=== PATIENT | female | born 1970 | race Caucasian/White ===

== ENCOUNTER 2018-10-17 06:28 | Day surgery (SDC) | payer BC ==
[2018-10-17] MEDS ORDERED: DIPRIVAN 200 MG/20 ML IV ONE (06:29)
[2018-10-17] MEDS ORDERED: Lactated Ringers 1,000 ML IV SCH (07:00)
[2018-10-17] MEDS ORDERED: Lactated Ringers 1,000 ML IV ONE (08:25)
[2018-10-17 09:11] VITALS: O2SAT 99
[2018-10-17 09:12] VITALS: BP 125/86; PULSE 72
--- NOTE | 2018-10-17 12:45 | OP ---
SURGERY DATE/TIME: 10/17/2018 0757 PREOPERATIVE DIAGNOSIS: Reflux, heartburn despite proton pump inhibitor and H2 blockers. POSTOPERATIVE DIAGNOSES: 1) Moderate to severe gastritis. 2) Hiatal hernia. PROCEDURE: Esophagogastroduodenoscopy with cold forceps biopsy. SURGEON: Dr. Pierce. ANESTHESIA: Medications were given by the anesthesia department. BRIEF HISTORY: The patient is a 48 year old white female presenting now for endoscopic evaluation. She reports she has been having a lot of trouble with epigastric pain radiating up into her chest. She also has reflux of food stuffs into the back of the throat at times. She has been taking Prilosec for many years. She recently changed to Protonix and added Zantac recently as well. The patient previously had her gallbladder removed. She is felt at this point to need endoscopic evaluation. She was appraised of the risks of the procedure including the risk of perforation, phlebitis, untoward reaction to medication, bleeding and missed lesions. The patient verbalized her understanding and desired to have the procedure performed. DESCRIPTION OF PROCEDURE: The patient was given the medications by the anesthesia department. She had continuous pulse oximetry, ECG monitoring, intermittent blood pressure monitoring and tidal CO2 monitoring during the examination. She was placed in the left lateral decubitus position. A bite block was placed and the flexible Olympus gastroscope was used to intubate the oropharynx. A view of the larynx obtained and was normal. The scope was easily passed in the esophagus which is normal to the gastroesophageal junction where there is appearance of hiatal hernia. The scope was introduced into the stomach where normal gastric rugal folds were seen and these distended nicely with insufflation of air. The scope was passed along the greater curvature of the stomach to the pylorus. The whole area of the stomach appeared to be with moderate to severe patchy erythema but no erosions or ulcerations were noted. The scope was passed through the pylorus to the duodenum. The duodenum inspected and found to be essentially normal. The scope is withdrawn towards the stomach. Again, a retroflex view was obtained of the lesser curvature, fundus and cardia regions of the stomach and there affirmed the presence of hiatal hernia. The scope was then redirected towards the gastric antrum and biopsies were obtained to rule out the presence of Helicobacter pylori-type organisms. The scope was then removed from the patient who tolerated the procedure well and was sent back to outpatient recovery in good condition.
== END 2018-10-17 09:15 | disposition home or self-care (01) ==
LOC: SDC 06:28
PROVIDERS: ATTEND Family Medicine
DX: K21.9 Gastro-esophageal reflux disease without esophagitis (principal); K29.70 Gastritis, unspecified, without bleeding; K44.9 Diaphragmatic hernia without obstruction or gangrene
CPT/HCPCS: J2704

== ENCOUNTER 2022-03-22 10:09 | Day surgery (SDC) | payer BC ==
--- NOTE | 2022-03-22 09:41 | HP ---
DATE OF SURGERY: 03/22/2022 HISTORY OF PRESENT ILLNESS: The patient is a 52-year-old female with history of hypertension, reflux, migraines, depression and heartburn. She had a cholecystectomy, tubal, upper endoscopy, uterine ablation, prior colonoscopy in the past. Family history father, sister and niece had colon cancer. She is in need for screening colonoscopy. Last colonoscopy four or five years ago she had some polyps. She is in need of follow up screening colonoscopy. PAST MEDICAL HISTORY: Asthma, hypertension, reflux, migraines, anxiety, depression and heartburn. PAST SURGICAL HISTORY: Cholecystectomy, tubal, upper endoscopy, uterine ablation, prior colonoscopy in the past. MEDICATIONS: Magnesium, methimazole, potassium chloride, spironolactone, topiramate, sumatriptan, sucralfate, pantoprazole, vitamin D3, amlodipine, sertraline. ALLERGIES: SULFA. REGLAN. FAMILY HISTORY: Father, sister and niece had colon cancer. SOCIAL HISTORY: No smoking. REVIEW OF SYSTEMS: Fourteen systems reviewed. No chest pain or palpitations. Other systems negative or noncontributory as above and per preadmission questionnaire. PHYSICAL EXAMINATION: GENERAL: No acute distress. HEENT: Sclerae nonicteric. NECK: No JVD. CHEST: Equal excursion, nonlabored breathing. CVS: Regular rate and rhythm. ABDOMEN: Soft. No peritoneal signs. EXTREMITIES: No significant edema. NEURO: Alert, oriented, moving extremities symmetrically. RECTAL: Deferred timed to endoscopy exam. PSYCH: Appropriate mood and affect. IMPRESSION: Family history of colon cancer, personal history of polyps. She is in need of follow up screening colonoscopy. I feel she is a candidate. General risk of bleeding or infection, risk of bowel injury or perforation possibly requiring further procedure, risk of missed or nondiagnosis or incomplete exam possibly requiring barium enema, other studies or procedures, general risk of anesthesia or sedation, risk of bowel prep but not limited to, consent obtained. Will proceed with outpatient follow up screening colonoscopy.
[~2022-03-22 10:09] MED LIST: Lactated Ringers 1,000 ML IV SCH
[2022-03-22] MEDS ORDERED: Lactated Ringers 1,000 ML IV ONE (10:21)
[2022-03-22] MEDS ORDERED: Xylocaine-Mpf 2% 5 Ml Vial ONE (12:44)
[2022-03-22] MEDS ORDERED: DIPRIVAN 200 MG/20 ML IV ONE ×2 (12:44→13:02)
[2022-03-22 14:00] VITALS: BP 129/86; PULSE 76; O2SAT 99
--- NOTE | 2022-03-23 09:48 | OP ---
SURGERY DATE/TIME: 03/22/2022 1254 PREOPERATIVE DIAGNOSES: 1) History of polyps. 2) Family history of colon cancer, need for follow up screening colonoscopy. POSTOPERATIVE DIAGNOSES: 1) Small polyps sigmoid colon and descending colon. 2) Diverticulosis. 3) Fair bowel prep. 4) ASA Class II. 5) Withdrawal time approximately 11 minutes. PROCEDURES: 1) Colonoscopy to cecum. 2) Hot biopsy polypectomy small early polyp versus hyperplastic lesion descending colon. 3) Hot biopsy polypectomy small sigmoid colon polyp removed with hot biopsy forceps. SURGEON: Dr. Justin Mcdonald. ANESTHESIA: MAC. ESTIMATED BLOOD LOSS: Minimal. INDICATIONS: As noted above. Risks and benefits explained in detail but not limited to and consent obtained. DESCRIPTION OF PROCEDURE AND FINDINGS: The patient is taken to the endoscopy room. MAC anesthesia induced. After official time out and no disagreement with planned procedure, digital rectal exam did not reveal any rectal masses. Video colonoscope inserted and passed up through the tortuous sigmoid, descending, transverse and ascending colon around to the cecum. Appendiceal orifice and valve well visualized and photo documented. Prep overall was fair with a little bit of liquidy semisolid stool throughout the colon. It took some additional time to suction irrigate out and cleaned out as well as possible. The scope is slowly and carefully withdrawn. No signs of any large polyps, masses or obstructing lesions. Small polyp versus hyperplastic lesion descending colon removed with hot biopsy forceps with brief bursts of cautery. Good hemostasis noted. The scope was carefully withdrawn. Small polyp versus hyperplastic lesion in descending colon removed with hot biopsy forceps. Small polyp in the sigmoid colon removed with hot biopsy polypectomy. Good hemostasis was noted. She did have some mild diverticulosis in the left colon. No signs of large polyps, masses or obstructing lesions. The scope is withdrawn. The patient tolerated the procedure well. Withdrawal time was around 11 minutes. I will see if she has any family to discuss the findings with out in the waiting area.
== END 2022-03-22 14:06 | disposition home or self-care (01) ==
LOC: SDC 10:09
PROVIDERS: ATTEND Surgery
DX: Z09 Encounter for follow-up examination after completed treatment for conditions other than malignant neoplasm (principal); Z86.010 Personal history of colon polyps; Z80.0 Family history of malignant neoplasm of digestive organs; K63.5 Polyp of colon; K57.30 Diverticulosis of large intestine without perforation or abscess without bleeding
CPT/HCPCS: J2704